=== PATIENT | female | born 1995 | race Caucasian/White ===

== ENCOUNTER 2018-07-25 12:06 | Emergency (ER) | payer MEDICAID ==
[~2018-07-25 12:06] MED LIST: ONDA4TAB12 PO
== END 2018-07-25 13:53 | disposition left against medical advice (07) ==
LOC: ER 12:06
DX: R10.9 Unspecified abdominal pain (principal); Z53.21 Procedure and treatment not carried out due to patient leaving prior to being seen by health care provider

== ENCOUNTER 2018-10-19 09:45 | Emergency (ER) | payer MEDICAID ==
[~2018-10-19] VITALS: Ht 172.7 cm; Wt 81.8 kg
[~2018-10-19 09:45] MED LIST changes: +CIPR-259 PO; +ONDA4TAB6 PO; +PHEN-716 PO
[2018-10-19 10:27] LABS: BASOPHILS # (AUTO) 0.1 X10'3 (0-0.2); BASOPHILS % (AUTO) 0.5 % (0-1); EOSINOPHILS # (AUTO) 0.1 X10'3 (0-0.9); EOSINOPHILS % (AUTO) 0.9 % (0-6); HEMATOCRIT 43.6 % (35.0-45.0); HEMOGLOBIN 14.8 g/dl (12.0-16.0); LYMPHOCYTES % (AUTO) 13.9 % (21-51); MEAN CORPUSCULAR HEMOGLOBIN 30.9 PG (27.0-31.0); MEAN CORPUSCULAR VOLUME 90.8 FL (78-98); MEAN PLATELET VOLUME 9.1 FL (7.4-10.4); MONOCYTES # (AUTO) 1.2 X10'3 (0-0.9); MONOCYTES % (AUTO) 8.2 % (2-12); NEUTROPHILS % (AUTO) 76.5 % (42-75); PLATELET COUNT 274 X10'3 (140-440); WHITE BLOOD COUNT 14.4 X10'3 (4.5-11.0)
[2018-10-19 10:41] LABS: INR 1.1 INR; PROTHROMBIN TIME 10.8 SECONDS (9.0-12.0)
[2018-10-19 10:42] LABS: ALANINE AMINOTRANSFERASE 24 U/L (12-78); ALKALINE PHOSPHATASE 68 IU/L (46-116); ANION GAP 11 (8-16); ASPARTATE AMINO TRANSFERASE 15 U/L (10-37); BILIRUBIN,TOTAL 0.3 MG/DL (0.1-1.0); BLOOD UREA NITROGEN 9 MG/DL (7-18); BUN/CREATININE RATIO 8.7 (6.6-38.0); CALCIUM 9.5 MG/DL (8.5-10.1); CHLORIDE 102 MMOL/L (99-107); CREATININE 1.04 MG/DL (0.40-0.90); GLUCOSE 120 MG/DL (70-104); POTASSIUM 3.5 MMOL/L (3.5-5.1); SODIUM 141 MMOL/L (135-145); TOTAL CARBON DIOXIDE 28.4 MMOL/L (24-32); TOTAL PROTEIN 7.9 G/DL (6.4-8.2); eGFR 65 ML/MIN
[2018-10-19 11:37] LABS: URINE HCG NEGATIVE (NEG)
[2018-10-19 11:40] LABS: CLARITY,URINE SLIGHTLY CLOUDY (Clear); GLUCOSE, URINE NEGATIVE (Neg); KETONES,URINE 15 mg/dl (Neg); LEUKOCYTE ESTERASE ,URINE MODERATE (Neg); NITRITES, URINE POSITIVE (Neg); OCCULT BLOOD,URINE LARGE (Neg); PROTEIN,URINE TRACE mg/dl (Neg)
[2018-10-19] MEDS ORDERED: ketorolac trometh. 30mg/ml inj. IV ONE (11:55)
[2018-10-19] MEDS ORDERED: normal saline 1000ML IV soln IVB ONE (11:55)
[2018-10-19] MEDS ORDERED: ondansetron/PF 4mg/2ml inj IV ONE (11:55)
[2018-10-19] MEDS ORDERED: haloperidol lactate 5mg/ml inj IM ONE (12:00)
[2018-10-19] MEDS ORDERED: LORazepam 2 mg/ml vial IV ONE (12:00)
[2018-10-19] MEDS ORDERED: diphenhydrAMINE 50 mg/ml inj IV ONE (12:00)
[2018-10-19 12:09] LABS: COLOR,URINE DARK YELLOW (Yellow); UA COLLECTION TYPE CLN CATCH MIDSTREAM
[2018-10-19 12:40] LABS: BACTERIA,URINE 3+ /HPF (Neg); SQUAMOUS EPITHELIAL CELL,UR MANY /LPF (FEW); WBC,URINE 0-4 /HPF (0-4)
[2018-10-19 14:18] VITALS: BP 124/64
== END 2018-10-19 14:20 | disposition home or self-care (01) ==
LOC: ER 09:45
DX: G43.A0 Cyclical vomiting, in migraine, not intractable (principal); G89.29 Other chronic pain; R10.84 Generalized abdominal pain; R19.7 Diarrhea, unspecified; Z79.899 Other long term (current) drug therapy
CPT/HCPCS: 36415; 80053; 81001; 81025; 85025; 85610; 96361; 96372; 96374; 96375; 99283; J1200; J1630; J1885; J2060; J2405; J7030

== ENCOUNTER 2018-11-09 14:36 | Emergency (ER) | payer MEDICAID ==
[~2018-11-09] VITALS: Ht 172.7 cm; Wt 81.3 kg
[~2018-11-09 14:36] MED LIST changes: -CIPR-259 PO
[2018-11-09 15:11] LABS: BASOPHILS # (AUTO) 0.1 X10'3 (0-0.2); BASOPHILS % (AUTO) 0.4 % (0-1); EOSINOPHILS # (AUTO) 0.1 X10'3 (0-0.9); EOSINOPHILS % (AUTO) 0.4 % (0-6); HEMATOCRIT 44.3 % (35.0-45.0); HEMOGLOBIN 14.7 g/dl (12.0-16.0); LYMPHOCYTES % (AUTO) 11.3 % (21-51); MEAN CORPUSCULAR HEMOGLOBIN 30.3 PG (27.0-31.0); MEAN CORPUSCULAR HGB CONC 33.1 g/dL (33.0-36.5); MEAN CORPUSCULAR VOLUME 91.6 FL (78-98); MEAN PLATELET VOLUME 8.7 FL (7.4-10.4); MONOCYTES # (AUTO) 0.7 X10'3 (0-0.9); NEUTROPHILS # (AUTO) 14.6 X10'3 (1.8-7.7); NEUTROPHILS % (AUTO) 83.9 % (42-75); PLATELET COUNT 290 X10'3 (140-440); RED BLOOD COUNT 4.84 X10'6 (4.20-5.60); RED CELL DISTRIBUTION WIDTH 12.2 % (11.5-14.5); WHITE BLOOD COUNT 17.5 X10'3 (4.5-11.0)
[2018-11-09 15:23] LABS: INR 1.1 INR; PROTHROMBIN TIME 10.9 SECONDS (9.0-12.0)
[2018-11-09 15:35] LABS: ALANINE AMINOTRANSFERASE 25 U/L (12-78); ALBUMIN 4.3 G/DL (3.4-5.0); ALBUMIN/GLOBULIN RATIO 1.1 (1.1-1.5); ALKALINE PHOSPHATASE 67 IU/L (46-116); AMYLASE 61 U/L (25-115); ANION GAP 11 (8-16); ASPARTATE AMINO TRANSFERASE 16 U/L (10-37); BILIRUBIN,TOTAL 0.3 MG/DL (0.1-1.0); BLOOD UREA NITROGEN 18 MG/DL (7-18); BUN/CREATININE RATIO 24.7 (6.6-38.0); CALCIUM 9.6 MG/DL (8.5-10.1); CHLORIDE 102 MMOL/L (99-107); CREATININE 0.73 MG/DL (0.40-0.90); GLUCOSE 134 MG/DL (70-104); LIPASE 86 U/L (73-393); POTASSIUM 3.6 MMOL/L (3.5-5.1); SODIUM 138 MMOL/L (135-145); TOTAL CARBON DIOXIDE 24.6 MMOL/L (24-32); TOTAL PROTEIN 8.1 G/DL (6.4-8.2); eGFR > 90 ML/MIN
[2018-11-09] MEDS ORDERED: diphenhydrAMINE 50 mg/ml inj IV ONE (16:15)
[2018-11-09] MEDS ORDERED: haloperidol lactate 5mg/ml inj IM ONE (16:15)
[2018-11-09] MEDS ORDERED: LORazepam 2 mg/ml vial IV ONE (16:15)
[2018-11-09] MEDS ORDERED: normal saline 1000ML IV soln IVB ONE (16:15)
[2018-11-09] MEDS ORDERED: proCHLORperazine 10 MG/2 ml inj IV ONE (16:55)
[2018-11-09 17:34] LABS: CLARITY,URINE SLIGHTLY CLOUDY (Clear); COLOR,URINE YELLOW (Yellow); GLUCOSE, URINE NEGATIVE (Neg); KETONES,URINE 40 mg/dl (Neg); LEUKOCYTE ESTERASE ,URINE NEGATIVE (Neg); NITRITES, URINE NEGATIVE (Neg); OCCULT BLOOD,URINE NEGATIVE (Neg); PH,URINE 8.5 (4.8-8.0); PROTEIN,URINE 100 mg/dl (Neg); UROBILINOGEN,URINE 0.2 E.U/dL (0.2-1.0)
[2018-11-09 17:37] LABS: UA COLLECTION TYPE CLN CATCH MIDSTREAM
[2018-11-09 17:39] LABS: URINE HCG NEGATIVE (NEG)
[2018-11-09 17:40] LABS: MUCUS STRANDS FEW /LPF (Neg); SQUAMOUS EPITHELIAL CELL,UR MANY /LPF (FEW)
[2018-11-09 17:41] LABS: BACTERIA,URINE 2+ /HPF (Neg); RBC,URINE 0-2 /HPF (0-2); WBC,URINE 0-4 /HPF (0-4)
[2018-11-09 18:12] VITALS: BP 101/52
== END 2018-11-09 18:23 | disposition home or self-care (01) ==
LOC: ER 14:37
DX: G43.A0 Cyclical vomiting, in migraine, not intractable (principal); E86.0 Dehydration; R10.84 Generalized abdominal pain; F12.90 Cannabis use, unspecified, uncomplicated; Z79.899 Other long term (current) drug therapy
CPT/HCPCS: 36415; 80053; 81001; 81025; 82150; 83690; 85025; 85610; 96361; 96372; 96374; 96375; 99283; J0780; J1200; J1630; J2060; J7030

== ENCOUNTER 2019-06-05 05:27 | Emergency (ER) | payer MEDICAID ==
[~2019-06-05] VITALS: Ht 172.7 cm; Wt 81.0 kg
--- NOTE | 2019-06-05 06:07 | NUR ---
ATTEMPTED TO START IV and draw blood as I was drawing blood, patient began screaming that it hurts. I said I'd another nurse to try an IV.
[2019-06-05] MEDS ORDERED: ondansetron/PF 4mg/2ml inj IV ONE (06:15)
[2019-06-05] MEDS ORDERED: normal saline 1000ML IV soln IVB ONE ×4 (06:15→10:20)
[2019-06-05] MEDS ORDERED: ketorolac trometh. 30mg/ml inj. IV ONE (06:15)
[2019-06-05 07:03] LABS: BASOPHILS # (AUTO) 0.1 X10'3 (0-0.2); BASOPHILS % (AUTO) 0.9 % (0-1); EOSINOPHILS % (AUTO) 0 % (0-6); HEMATOCRIT 39.1 % (35.0-45.0); HEMOGLOBIN 13.4 g/dl (12.0-16.0); LYMPHOCYTES # (AUTO) 2.1 X10'3 (1.1-4.8); LYMPHOCYTES % (AUTO) 12.2 % (21-51); MEAN CORPUSCULAR HEMOGLOBIN 31.3 PG (27.0-31.0); MEAN CORPUSCULAR HGB CONC 34.2 g/dL (33.0-36.5); MEAN CORPUSCULAR VOLUME 91.3 FL (78-98); MEAN PLATELET VOLUME 8.3 FL (7.4-10.4); MONOCYTES # (AUTO) 1.3 X10'3 (0-0.9); MONOCYTES % (AUTO) 7.5 % (2-12); NEUTROPHILS # (AUTO) 13.5 X10'3 (1.8-7.7); NEUTROPHILS % (AUTO) 79.4 % (42-75); PLATELET COUNT 294 X10'3 (140-440); RED BLOOD COUNT 4.28 X10'6 (4.20-5.60); RED CELL DISTRIBUTION WIDTH 12.4 % (11.5-14.5)
[2019-06-05 07:14] LABS: ALANINE AMINOTRANSFERASE 22 U/L (12-78); ALBUMIN 3.8 G/DL (3.4-5.0); ALBUMIN/GLOBULIN RATIO 0.9 (1.1-1.5); ALKALINE PHOSPHATASE 69 IU/L (46-116); ANION GAP 12 (8-16); ASPARTATE AMINO TRANSFERASE 18 U/L (10-37); BILIRUBIN,TOTAL 0.5 MG/DL (0.1-1.0); BLOOD UREA NITROGEN 15 MG/DL (7-18); BUN/CREATININE RATIO 18.5 (6.6-38.0); CHLORIDE 102 MMOL/L (99-107); CREATININE 0.81 MG/DL (0.40-0.90); GLUCOSE 111 MG/DL (70-104); LIPASE < 50 U/L (73-393); POTASSIUM 3.8 MMOL/L (3.5-5.1); SODIUM 138 MMOL/L (135-145); TOTAL CARBON DIOXIDE 23.9 MMOL/L (24-32); TOTAL PROTEIN 7.9 G/DL (6.4-8.2); eGFR 86 ML/MIN
[2019-06-05] MEDS ORDERED: fentaNYL/PF 50MCG/1 ML 2ML syringe IV ONE ×2 (08:00→08:45)
--- NOTE | 2019-06-05 08:05 | NUR ---
DR GREGG RETURN FROM RAPID AND PLACED ORDER FOR PAIN MEDIATION, ROSA MELÉNDEZ MEDICATED PT AND DR GREGG AT BEDSIDE TO EVALUATE PT.
--- NOTE | 2019-06-05 08:47 | NUR ---
DR GREGG INFORMED OF PT PAIN 5/10 AND RECENT BP 99/52, PT HAS NOT PROVIDED URINE SAMPLE AT THIS TIME. ORDERS TO FOLLOW FOR PAIN MED AND NS FLUIDS
--- NOTE | 2019-06-05 08:50 | NUR ---
PT AMBULATORY TO BATHROOM WITH STEADY GAIT TO PROVIDE URINE SAMPLE PER ORDERS.
--- NOTE | 2019-06-05 09:12 | NUR ---
PT DENIES ANY DIZZINESS OR LIGHTHEADED FEELING LYING DOWN OR WHEN AMBULATING TO BATHROOM. PT MEDICATED WITH NS FLUID BOLUS AND IV PAIN MEDICATIONS PER ORDERS.
[2019-06-05 09:26] LABS: CLARITY,URINE CLEAR (Clear); COLOR,URINE YELLOW (Yellow); GLUCOSE, URINE NEGATIVE (Neg); KETONES,URINE TRACE mg/dl (Neg); LEUKOCYTE ESTERASE ,URINE NEGATIVE (Neg); NITRITES, URINE NEGATIVE (Neg); OCCULT BLOOD,URINE LARGE (Neg); PROTEIN,URINE 30 mg/dl (Neg); UROBILINOGEN,URINE 0.2 E.U/dL (0.2-1.0)
[2019-06-05 09:27] LABS: UA COLLECTION TYPE CLN CATCH MIDSTREAM; URINE HCG NEGATIVE (NEG)
[2019-06-05 09:38] LABS: MUCUS STRANDS MANY /LPF (Neg)
[2019-06-05 09:43] LABS: SQUAMOUS EPITHELIAL CELL,UR MODERATE /LPF (FEW)
[2019-06-05 09:44] LABS: RBC,URINE 20-50 /HPF (0-2)
[2019-06-05 09:45] LABS: TRANSITIONAL EPI CELLS,URINE FEW /HPF
[2019-06-05 09:47] LABS: BACTERIA,URINE FEW /HPF (Neg)
[2019-06-05] MEDS ORDERED: ONDA4TAB12 PO (11:44)
[2019-06-05 12:27] VITALS: BP 113/58
--- NOTE | 2019-06-05 12:33 | NUR ---
PT IS ALERT AND ORIENTED X 4. GAIT TEST SHOWS STEADY ON FEET WITH NO ASSISSTANCE.
== END 2019-06-05 12:30 | disposition home or self-care (01) ==
LOC: ER 05:28
DX: N20.0 Calculus of kidney (principal); R11.2 Nausea with vomiting, unspecified; F12.90 Cannabis use, unspecified, uncomplicated; F10.99 Alcohol use, unspecified with unspecified alcohol-induced disorder; Z79.899 Other long term (current) drug therapy; Y90.9 Presence of alcohol in blood, level not specified
CPT/HCPCS: 36415; 74176; 80053; 81001; 81025; 83690; 85025; 85610; 87088; 96361; 96374; 96375; 96376; 99284; J1885; J2405; J3010; J7030

== ENCOUNTER 2019-06-06 01:37 | Emergency (ER) | payer MEDICAID ==
[~2019-06-06] VITALS: Ht 172.7 cm; Wt 81.8 kg
[2019-06-06 01:40] VITALS: BP 155/100
[2019-06-06] MEDS ORDERED: normal saline 1000ML IV soln IVB ONE (02:00)
[2019-06-06] MEDS ORDERED: LORazepam 2 mg/ml vial IV ONE (02:00)
[2019-06-06] MEDS ORDERED: metoclopramide 5 mg/ml inj IV ONE (02:00)
[2019-06-06] MEDS ORDERED: ketorolac trometh. 30mg/ml inj. IV ONE (02:00)
--- NOTE | 2019-06-06 02:21 | NUR ---
given reglan, toradol and ativan iv. pt reports after 5 min "its not helping with my pain...tell the doctor its not working" i explained she needs to give the medicine some time. pt reprots she received zofran this am when here and it helped her nausea. states she got toradol this am and it did not help with her pain.
--- NOTE | 2019-06-06 02:35 | NUR ---
patient continues to moan loudly in her room, begging for narcotics from myself and dr. Moss.
[2019-06-06] MEDS ORDERED: haloperidol lactate 5mg/ml inj IM ONE (02:40)
[2019-06-06] MEDS: acetaminophen 325mg tablet PO ONE ×2 (02:48→02:51)
--- NOTE | 2019-06-06 02:58 | NUR ---
At discharge, she asked where the nearest ER is so she can get opiates for her pain.
== END 2019-06-06 03:01 | disposition home or self-care (01) ==
LOC: ER 01:38
DX: R11.15 Cyclical vomiting syndrome unrelated to migraine (principal); R10.32 Left lower quadrant pain; R19.7 Diarrhea, unspecified; F12.90 Cannabis use, unspecified, uncomplicated; F10.99 Alcohol use, unspecified with unspecified alcohol-induced disorder; Z98.890 Other specified postprocedural states; Y90.9 Presence of alcohol in blood, level not specified
CPT/HCPCS: 96372; 96374; 96375; 99283; J1630; J1885; J2060; J2765; J7030

== ENCOUNTER 2019-11-25 12:43 | Emergency (ER) | payer BC, MEDICAID ==
[~2019-11-25] VITALS: Ht 172.7 cm; Wt 81.8 kg
[2019-11-25 12:52] VITALS: BP 129/87
== END 2019-11-25 14:42 | disposition left against medical advice (07) ==
LOC: ER 12:43
DX: F10.239 Alcohol dependence with withdrawal, unspecified (principal); Z53.21 Procedure and treatment not carried out due to patient leaving prior to being seen by health care provider

== ENCOUNTER 2019-11-25 21:01 | Emergency (ER) | payer MEDICAID ==
[~2019-11-25] VITALS: Ht 172.7 cm; Wt 76.1 kg
[2019-11-25] MEDS ORDERED: normal saline 1000ML IV soln IVB ONE (22:00)
[2019-11-25] MEDS ORDERED: ketorolac trometh. 30mg/ml inj. IV ONE (22:00)
[2019-11-25] MEDS ORDERED: proCHLORperazine 10 MG/2 ml inj IV ONE (22:00)
[2019-11-25 22:04] LABS: BASOPHILS % (AUTO) 0.2 % (0-1); EOSINOPHILS % (AUTO) 0.3 % (0-6); HEMATOCRIT 44.7 % (35.0-45.0); LYMPHOCYTES # (AUTO) 2.6 X10'3 (1.1-4.8); LYMPHOCYTES % (AUTO) 16.1 % (21-51); MEAN CORPUSCULAR HEMOGLOBIN 30.4 PG (27.0-31.0); MEAN CORPUSCULAR HGB CONC 33.5 g/dL (33.0-36.5); MEAN CORPUSCULAR VOLUME 90.6 FL (78-98); MEAN PLATELET VOLUME 8.5 FL (7.4-10.4); MONOCYTES # (AUTO) 1.7 X10'3 (0-0.9); MONOCYTES % (AUTO) 10.4 % (2-12); NEUTROPHILS # (AUTO) 11.7 X10'3 (1.8-7.7); PLATELET COUNT 307 X10'3 (140-440); RED BLOOD COUNT 4.93 X10'6 (4.20-5.60); RED CELL DISTRIBUTION WIDTH 12.1 % (11.5-14.5); WHITE BLOOD COUNT 16.1 X10'3 (4.5-11.0)
[2019-11-25 22:11] LABS: ALANINE AMINOTRANSFERASE 34 U/L (12-78); ALBUMIN 4.6 G/DL (3.4-5.0); ALBUMIN/GLOBULIN RATIO 1.2 (1.1-1.5); ALKALINE PHOSPHATASE 70 IU/L (46-116); ANION GAP 9 (8-16); ASPARTATE AMINO TRANSFERASE 32 U/L (10-37); BILIRUBIN,TOTAL 0.7 MG/DL (0.1-1.0); BLOOD UREA NITROGEN 16 MG/DL (7-18); BUN/CREATININE RATIO 18.4 (6.6-38.0); CALCIUM 9.6 MG/DL (8.5-10.1); CHLORIDE 98 MMOL/L (99-107); CREATININE 0.87 MG/DL (0.40-0.90); GLUCOSE 109 MG/DL (70-104); LIPASE 77 U/L (73-393); POTASSIUM 3.3 MMOL/L (3.5-5.1); SODIUM 134 MMOL/L (135-145); TOTAL PROTEIN 8.4 G/DL (6.4-8.2); eGFR 79 ML/MIN
--- NOTE | 2019-11-25 22:30 | NUR ---
pt asked to give an UA, pt is unable to at this time
[2019-11-25] MEDS ORDERED: potassium Cl 20 mEq SR tablet PO STA (22:51)
[2019-11-25] MEDS ORDERED: LORazepam 2 mg/ml vial IV ONE (22:55)
[2019-11-25 23:25] LABS: URINE HCG NEGATIVE (NEG)
[2019-11-25 23:30] LABS: CLARITY,URINE SLIGHTLY CLOUDY (Clear); COLOR,URINE YELLOW (Yellow); GLUCOSE, URINE NEGATIVE (Neg); KETONES,URINE 15 mg/dl (Neg); LEUKOCYTE ESTERASE ,URINE TRACE (Neg); NITRITES, URINE NEGATIVE (Neg); OCCULT BLOOD,URINE LARGE (Neg); PROTEIN,URINE 100 mg/dl (Neg)
[2019-11-25 23:36] LABS: UA COLLECTION TYPE CLN CATCH MIDSTREAM
[2019-11-25 23:38] LABS: BACTERIA,URINE FEW /HPF (Neg); MUCUS STRANDS FEW /LPF (Neg); RBC,URINE 0-2 /HPF (0-2); SQUAMOUS EPITHELIAL CELL,UR FEW /LPF (FEW); WBC,URINE 0-4 /HPF (0-4)
[2019-11-25 23:40] VITALS: BP 115/51
== END 2019-11-26 00:12 | disposition home or self-care (01) ==
LOC: ER 21:01
DX: R10.32 Left lower quadrant pain (principal); R11.10 Vomiting, unspecified; F12.90 Cannabis use, unspecified, uncomplicated; Z72.89 Other problems related to lifestyle; Z79.899 Other long term (current) drug therapy
CPT/HCPCS: 36415; 80053; 81001; 81025; 83690; 85025; 87088; 96374; 96375; 99284; J0780; J1885; J2060; J7030

== ENCOUNTER 2020-05-31 20:00 | Emergency (ER) | payer MEDICAID ==
[~2020-05-31] VITALS: Ht 172.7 cm; Wt 85.0 kg
[~2020-05-31 20:00] MED LIST changes: +LIDOcaine 1% W/epiNEPHrine 1:100,000 20ml vial ONE
[2020-05-31 20:04] VITALS: BP 103/74
[2020-05-31] MEDS ORDERED: ibuprofen tablet 400 MG TABLET PO ONE (21:35)
[2020-05-31] MEDS ORDERED: LIDOcaine 1% W/epiNEPHrine 1:200,000 10ml vial IJ ONE (21:35)
[2020-05-31] MEDS ORDERED: TETanus/Pertussis (Acell)/Diphther VAC/PF (Tdap-Adult) 0.5ml syringe IMVAC ONE (21:40)
== END 2020-05-31 22:52 | disposition home or self-care (01) ==
LOC: ER 20:00
DX: S61.411A Laceration without foreign body of right hand, initial encounter (principal); F17.200 Nicotine dependence, unspecified, uncomplicated; F12.90 Cannabis use, unspecified, uncomplicated; Z72.89 Other problems related to lifestyle; Z79.899 Other long term (current) drug therapy; W45.8XXA Other foreign body or object entering through skin, initial encounter; Y93.89 Activity, other specified; Y92.89 Other specified places as the place of occurrence of the external cause; Y99.8 Other external cause status
CPT/HCPCS: 12002; 90471; 90715; 99283

== ENCOUNTER 2020-06-08 04:00 | Emergency (ER) | payer MEDICAID ==
[~2020-06-08] VITALS: Ht 172.7 cm; Wt 84.1 kg
[~2020-06-08 04:00] MED LIST changes: -LIDOcaine 1% W/epiNEPHrine 1:100,000 20ml vial ONE
[2020-06-08] MEDS ORDERED: morphine 10mg/ml inj. IV ONE ×2 (04:15→04:25)
[2020-06-08] MEDS ORDERED: ondansetron/PF 4mg/2ml inj IV ONE (04:15)
[2020-06-08] MEDS ORDERED: normal saline 1000ml 1,000 ML IV ONE (04:15)
[2020-06-08 04:29] LABS: HEMOGLOBIN 16.6 g/dl (12.0-16.0); MEAN CORPUSCULAR HEMOGLOBIN 30.5 PG (27.0-31.0)
[2020-06-08 04:30] LABS: BASOPHILS # (AUTO) 0.1 X10'3 (0-0.2); BASOPHILS % (AUTO) 0.5 % (0-1); EOSINOPHILS % (AUTO) 0.1 % (0-6); HEMATOCRIT 49.3 % (35.0-45.0); LYMPHOCYTES # (AUTO) 1.7 X10'3 (1.1-4.8); LYMPHOCYTES % (AUTO) 8.6 % (21-51); MEAN CORPUSCULAR HGB CONC 33.6 g/dL (33.0-36.5); MEAN CORPUSCULAR VOLUME 90.6 FL (78-98); MEAN PLATELET VOLUME 8.9 FL (7.4-10.4); MONOCYTES # (AUTO) 1.1 X10'3 (0-0.9); MONOCYTES % (AUTO) 5.7 % (2-12); NEUTROPHILS % (AUTO) 85.1 % (42-75); PLATELET COUNT 355 X10'3 (140-440); RED BLOOD COUNT 5.44 X10'6 (4.20-5.60); RED CELL DISTRIBUTION WIDTH 12.2 % (11.5-14.5)
[2020-06-08] MEDS ORDERED: fentaNYL/PF 50MCG/1 ML 2ML syringe IV ONE (04:40)
[2020-06-08] MEDS ORDERED: haloperidol lactate 5mg/ml inj IM ONE (04:45)
[2020-06-08 04:54] LABS: ALANINE AMINOTRANSFERASE 52 U/L (12-78); ALBUMIN/GLOBULIN RATIO 1.1 (1.1-1.5); ALKALINE PHOSPHATASE 72 IU/L (46-116); ANION GAP 16 (8-16); ASPARTATE AMINO TRANSFERASE 30 U/L (10-37); BILIRUBIN,TOTAL 0.9 MG/DL (0.1-1.0); BLOOD UREA NITROGEN 25 MG/DL (7-18); BUN/CREATININE RATIO 22.7 (6.6-38.0); CALCIUM 10.4 MG/DL (8.5-10.1); CHLORIDE 97 MMOL/L (99-107); GLUCOSE 153 MG/DL (70-104); LIPASE 50 U/L (73-393); POTASSIUM 3.9 MMOL/L (3.5-5.1); SODIUM 134 MMOL/L (135-145); TOTAL CARBON DIOXIDE 21.1 MMOL/L (24-32); TOTAL PROTEIN 9.6 G/DL (6.4-8.2); eGFR 60 ML/MIN
[2020-06-08] MEDS ORDERED: iohexol 300mg/ml 100ml inj. ONE (05:06)
--- NOTE | 2020-06-08 05:10 | NUR ---
PT STATES SHE CANNOT PROVIDE URINE AT THIS TIME.
--- NOTE | 2020-06-08 05:11 | NUR ---
[facility] CHERYL MADE AWARE PT REPORTED PAIN IS STILL 9/10. NO NEW ORDERS AT THIS TIME. WILL CONTINUE TO MONITOR
--- NOTE | 2020-06-08 05:19 | NUR ---
PT WALKED OUT TO NURSING STATION REQUESTING MORE PAIN MEDS. INFORMED PT THAT PRIMARY RN AND MD ARE AWARE. PT THEN STARTS TO WALK BACK TO ROOM, GETS ON KNEES, AND CRAWLS DOWN HALLWAY. STANDS AT HER ROOM'S DOORWAY AND WALKS BACK TO BED. PRIMARY RN AND MD MADE AWARE
--- NOTE | 2020-06-08 05:22 | NUR ---
INFORMED EDMD BAEHR OF PT CONTINUING MOANING IN PAIN. VERBAL ORDER RECEIVED FOR DILAUDED 1MG IV X1 DOSE NOW. ORDER PLACED RECEIVED
[2020-06-08] MEDS ORDERED: HYDROmorphone 1 mg/ml syringe IV ONE (05:25)
[2020-06-08 05:34] LABS: HCG SERUM QL NEGATIVE
--- NOTE | 2020-06-08 06:01 | NUR ---
PT STATES PAIN IS NOW MANAGABLE AT A 4/10 AND STATES SOME ANXIETY. [facility] BAEHR MADE AWARE AND NO NEW ORDERS. PT APPEARS TO BE RESTING COMFORTBALY IN BED WITH BLANKETS. NO DISTRESS NOTED.
--- NOTE | 2020-06-08 06:12 | NUR ---
PT STATES SHES UNABLE TO URINATE AT THIS TIME FOR SAMPLE. WILL CONTINUE TO REQUEST SAMPLE
[2020-06-08 07:58] VITALS: BP 121/74
== END 2020-06-08 08:00 | disposition home or self-care (01) ==
LOC: ER 04:01
DX: R10.12 Left upper quadrant pain (principal); D72.829 Elevated white blood cell count, unspecified; R11.2 Nausea with vomiting, unspecified; K59.00 Constipation, unspecified; F17.200 Nicotine dependence, unspecified, uncomplicated; F12.90 Cannabis use, unspecified, uncomplicated; Z72.89 Other problems related to lifestyle; Z87.442 Personal history of urinary calculi; Z79.899 Other long term (current) drug therapy
CPT/HCPCS: 36415; 74177; 80053; 83690; 84703; 85025; 96361; 96372; 96374; 96375; 99285; J1170; J1630; J2270; J2405; J3010; J7030; Q9967

== ENCOUNTER 2021-04-05 10:05 | Emergency (ER) | payer MEDICAID ==
[~2021-04-05] VITALS: Ht 172.7 cm; Wt 86.4 kg
[2021-04-05 10:33] VITALS: BP 110/71
--- NOTE | 2021-04-05 10:36 | NUR ---
PT DECLINES TO GIVE UA AT THIS TIME STATING SHE JUST WENT.
[2021-04-05 11:11] LABS: BASOPHILS # (AUTO) 0.1 X10'3 (0-0.2); BASOPHILS % (AUTO) 0.4 % (0-1); EOSINOPHILS % (AUTO) 0 % (0-6); HEMATOCRIT 46.1 % (35.0-45.0); HEMOGLOBIN 15.6 g/dl (12.0-16.0); LYMPHOCYTES # (AUTO) 1.3 X10'3 (1.1-4.8); LYMPHOCYTES % (AUTO) 9.5 % (21-51); MEAN CORPUSCULAR HEMOGLOBIN 31.1 PG (27.0-31.0); MEAN CORPUSCULAR HGB CONC 33.9 g/dL (33.0-36.5); MEAN CORPUSCULAR VOLUME 91.8 FL (78-98); MEAN PLATELET VOLUME 8.5 FL (7.4-10.4); MONOCYTES # (AUTO) 1.2 X10'3 (0-0.9); MONOCYTES % (AUTO) 8.8 % (2-12); NEUTROPHILS # (AUTO) 10.8 X10'3 (1.8-7.7); NEUTROPHILS % (AUTO) 81.3 % (42-75); PLATELET COUNT 299 X10'3 (140-440); RED BLOOD COUNT 5.02 X10'6 (4.20-5.60); RED CELL DISTRIBUTION WIDTH 12.3 % (11.5-14.5); WHITE BLOOD COUNT 13.3 X10'3 (4.5-11.0)
[2021-04-05 11:27] LABS: ALANINE AMINOTRANSFERASE 37 U/L (12-78); ALBUMIN 4.6 G/DL (3.4-5.0); ALBUMIN/GLOBULIN RATIO 1.1 (1.1-1.5); ALKALINE PHOSPHATASE 67 IU/L (46-116); ANION GAP 12 (8-16); ASPARTATE AMINO TRANSFERASE 20 U/L (10-37); BILIRUBIN,TOTAL 0.4 MG/DL (0.1-1.0); CALCIUM 9.3 MG/DL (8.5-10.1); CHLORIDE 102 MMOL/L (99-107); CREATININE 0.95 MG/DL (0.40-0.90); GLUCOSE 122 MG/DL (70-104); LIPASE < 50 U/L (73-393); POTASSIUM 4.3 MMOL/L (3.5-5.1); SODIUM 139 MMOL/L (135-145); TOTAL CARBON DIOXIDE 25.5 MMOL/L (24-32); TOTAL PROTEIN 8.7 G/DL (6.4-8.2); eGFR 71 ML/MIN
[2021-04-05 11:28] LABS: BLOOD UREA NITROGEN 11 MG/DL (7-18); BUN/CREATININE RATIO 11.6 (6.6-38.0)
== END 2021-04-05 16:42 | disposition left against medical advice (07) ==
LOC: ER 10:05
DX: R10.84 Generalized abdominal pain (principal); R11.2 Nausea with vomiting, unspecified; F12.90 Cannabis use, unspecified, uncomplicated; Z87.442 Personal history of urinary calculi; Z72.89 Other problems related to lifestyle; Z79.899 Other long term (current) drug therapy
CPT/HCPCS: 36415; 80053; 83690; 85025; 99283

== ENCOUNTER 2021-04-05 23:41 | Emergency (ER) | payer MEDICAID ==
[2021-04-06] MEDS ORDERED: ondansetron 4mg rapidly disintigrating tab PO ONE (00:45)
== END 2021-04-06 01:06 | disposition left against medical advice (07) ==
LOC: ER 23:41
DX: R11.10 Vomiting, unspecified (principal); Z53.21 Procedure and treatment not carried out due to patient leaving prior to being seen by health care provider

== ENCOUNTER 2022-01-01 09:41 | Emergency (ER) | payer MEDICAID ==
[~2022-01-01] VITALS: Ht 172.7 cm; Wt 81.3 kg
[2022-01-01 09:50] VITALS: BP 106/76
[2022-01-01] MEDS ORDERED: MELO-100 PO (10:33)
== END 2022-01-01 10:40 | disposition home or self-care (01) ==
LOC: ER 09:41
DX: S49.92XA Unspecified injury of left shoulder and upper arm, initial encounter (principal); W21.07XA Struck by softball, initial encounter; Y93.64 Activity, baseball; Y99.8 Other external cause status; Y92.89 Other specified places as the place of occurrence of the external cause
CPT/HCPCS: 73030; 99283

== ENCOUNTER 2024-01-17 00:06 | Emergency (ER) | payer SELFPAY ==
[~2024-01-17] VITALS: Ht 172.7 cm; Wt 81.8 kg
[~2024-01-17 00:06] MED LIST changes: +CEPH-585 PO; +MELO-100 PO
[2024-01-17 00:13] VITALS: BP 117/72; PULSE 123; RESP 20; TEMP 98.6; O2SAT 95
== END 2024-01-17 03:54 | disposition left against medical advice (07) ==
LOC: ER 00:07
DX: R10.9 Unspecified abdominal pain (principal); Z53.21 Procedure and treatment not carried out due to patient leaving prior to being seen by health care provider